=== PATIENT | male | born 1960 | race Caucasian/White ===

== ENCOUNTER 2021-01-31 19:57 | Emergency (ER) | payer MEDICAID ==
[~2021-01-31] VITALS: Ht 170.2 cm; Wt 88.0 kg
[2021-01-31 19:57] VITALS: BP_SYST 143
[2021-01-31 20:06] VITALS: BP_SYST 143
== END 2021-01-31 20:06 ==
LOC: SED 19:57
DX: Z02.89 Encounter for other administrative examinations (principal); F10.129 Alcohol abuse with intoxication, unspecified; Y90.9 Presence of alcohol in blood, level not specified
CPT/HCPCS: 99283